=== PATIENT | male | born 1965 | race Caucasian/White ===

== ENCOUNTER 2021-05-16 15:39 | Outpatient (CLI) | payer MEDICAID ==
--- NOTE | 2021-05-24 08:45 | XRAY Report ---
PROCEDURE: Shoulder 3 View LT INDICATIONS: SHOULDER PAIN TECHNIQUE: 3 views of the shoulder were acquired. COMPARISON: None. FINDINGS: Bones: No fractures or dislocations. Mild to moderate acromioclavicular joint and glenohumeral join t osteoarthritic changes are seen. No suspicious bony lesions. Visualized ribs appear intact. Soft tissues: No suspicious soft tissue calcifications. IMPRESSION: Mild to moderate left shoulder joint osteoarthritis. No fracture or dislocation. No susp icious bony lesion. Reviewed by: El Shelley MD on 05/16/2021 4:24 PM PDT Approved by: El Shelley MD on 05/16/2021 4:24 PM PDT Station ID: [id number]
== END 2021-05-16 15:40 | disposition home or self-care (01) ==
LOC: DI 15:39
PROVIDERS: ATTEND Family Medicine
DX: M19.012 Primary osteoarthritis, left shoulder (principal)

== ENCOUNTER 2022-03-10 09:20 | Outpatient (CLI) | payer MEDICAID ==
--- NOTE | 2022-03-10 10:06 | XRAY Report ---
PROCEDURE: Knee 2 View RT INDICATIONS: R KNEE PX TECHNIQUE: 2 views of the right knee(s) were acquired. COMPARISON: None. FINDINGS: Bones: No fractures or dislocations. No suspicious bony lesions. Soft tissues: No joint effusion. No suspicious soft tissue calcifications. IMPRESSION: No acute fracture. No osseous lesion. If symptoms and/or clinical suspicion for patholog y continue, further assessment with repeat plain films, or advanced imaging (e.g., CT, MRI, or bone s can) is recommended for further assessment. Reviewed by: Óscar Beach MD on 03/10/2022 10:04 AM PDT Approved by: Óscar Beach MD on 03/10/2022 10:04 AM PDT Station ID: [id number]
== END 2022-03-10 09:21 | disposition home or self-care (01) ==
LOC: DI 09:20
PROVIDERS: ATTEND Family Medicine
DX: M25.561 Pain in right knee (principal)

== ENCOUNTER 2022-05-11 14:21 | Outpatient (CLI) | payer MEDICAID ==
--- NOTE | 2022-05-11 16:58 | MRI Report ---
PROCEDURE: Knee RT W/O INDICATIONS: RIGHT KNEE PAIN TECHNIQUE: Noncontrast sagittal PD fast spin echo and T2 fast spin echo with fat saturation, sagittal 3-D gradie nt sequence with fat saturation; coronal T1 spin echo and PD fast spin echo with fat saturation, and axial PD fast spin echo with fat saturation through the knee. COMPARISON: None. FINDINGS: Image quality: Excellent. Menisci: Degenerative signal suspected in the body and posterior horn of the lateral meniscus, versus a tiny horizontal tear. The meniscal popliteal fascicles are intact. Complex tear of the medial meni scus, primarily in a horizontal orientation in the posterior horn. There is a focal radial tear (5/22 ). The meniscus is slightly extruded. Cruciate ligaments: The anterior and posterior cruciate ligaments appear intact. Medial structures: There is edema and thickening of the MCL. The semimembranosus and anserine tendons are intact. Lateral structures: The biceps femoris tendon, LCL, and iliotibial band are intact. The popliteus ten don is intact. Anterior structures: Extensor mechanism is intact. Trace fluid in Hoffa's fat pad. There is prepatell ar soft tissue swelling. The medial retinaculum is intact. Bones and cartilage: Mild tricompartmental chondromalacia without a large full-thickness defect. Ther e might be a tiny focal fissure in the medial femoral condyle with underlying marrow edema. Joint space: Mild to moderate joint effusion and synovitis. No significant Carpio's cyst. IMPRESSION: Complex tear of the medial meniscus, primarily involving the posterior horn in a horizon ofelia orientation. There is a focal radial tear as well (5/22). Slightly extruded meniscus. Sprain and likely prior injury of the MCL. Mild to moderate joint effusion and synovitis. Trace fluid in Hoffa's fat pad. Prepatellar bursitis. Overall mild arthrosis, questionable tiny fissure of the medial femoral condyle cartilage with marrow edema. Reviewed by: Sergio Dumas MD on 05/11/2022 4:57 PM PDT Approved by: Sergio Dumas MD on 05/11/2022 4:57 PM PDT Station ID: [id number]
== END 2022-05-11 14:22 | disposition home or self-care (01) ==
LOC: DI 14:21
PROVIDERS: ATTEND Family Medicine
DX: S83.231A Complex tear of medial meniscus, current injury, right knee, initial encounter (principal); S83.411A Sprain of medial collateral ligament of right knee, initial encounter; M25.461 Effusion, right knee; M70.41 Prepatellar bursitis, right knee; M17.11 Unilateral primary osteoarthritis, right knee

== ENCOUNTER 2022-06-08 08:00 | Outpatient (CLI) | payer MEDICAID ==
--- NOTE | 2022-06-08 15:11 | XRAY Report ---
PROCEDURE: Knee 4 View RT INDICATIONS: RIGHT KNEE PAIN TECHNIQUE: 4 views of the right knee(s) were acquired. COMPARISON: Right knee radiographs 03/10/2022. FINDINGS: Bones: No fractures or dislocations. No suspicious bony lesions. Mild medial compartment narrowing . Minimal patellofemoral compartment spurring. Mild medial compartment narrowing of the left knee als o demonstrated on the frontal view including both knees. Soft tissues: Trace joint effusion. No suspicious soft tissue calcifications. IMPRESSION: 1. No acute fracture visualized. 2. Mild degenerative changes of both knees. 3. Trace right knee effusion. Reviewed by: Jose Maria Larsen MD on 06/08/2022 3:10 PM PDT Approved by: Jose Maria Larsen MD on 06/08/2022 3:10 PM PDT Station ID: [id number]
== END 2022-06-08 23:59 | disposition home or self-care (01) ==
LOC: DI.WOS 08:00
PROVIDERS: ATTEND Orthopaedic Surgery
DX: M17.0 Bilateral primary osteoarthritis of knee (principal); M25.461 Effusion, right knee

== ENCOUNTER 2023-07-23 07:10 | Day surgery (SDC) | payer MEDICAID ==
[2023-07-23] MEDS ORDERED: LACTATED RINGERS 1,000 ML IV ONE ×2 (07:41→09:44)
--- NOTE | 2023-07-23 08:36 | ANESTHESIA ---
Pre-Anesthesia VS, & Labs - Diagnosis screening - Procedure colonoscopy Vital Signs: Temp Pulse Resp BP Pulse Ox O2 Flow Rate 36.1 C L 70 14 138/72 H 98 0 07/23/23 07:42 07/23/23 07:42 07/23/23 07:42 07/23/23 07:42 07/23/23 07:42 07/23/23 07:42 Height: 5 ft 7 in Weight (kg): 97.52 kg Body Mass Index: 33.6 BMI Classification: Obese - NPO >8 hours Home Medications and Allergies Home Medications: Ambulatory Orders Levothyroxine Sodium 50 mcg ORAL DAILY 07/20/23 Rosuvastatin Calcium [Crestor] 20 mg ORAL HS 07/20/23 allopurinoL [Allopurinol] 300 mg ORAL DAILY 07/20/23 amLODIPine [Norvasc] 5 mg ORAL DAILY 07/20/23 Levothyroxine Sodium 50 mcg ORAL DAILY 07/20/23 Rosuvastatin Calcium [Crestor] 20 mg ORAL HS 07/20/23 allopurinoL [Allopurinol] 300 mg ORAL DAILY 07/20/23 amLODIPine [Norvasc] 5 mg ORAL DAILY 07/20/23 Allergies/Adverse Reactions: Allergies Allergy/AdvReac Type Severity Reaction Status Date / Time Penicillins Allergy Intermediate Rash Verified 07/23/23 07:47 Anes History & Medical History - Anesthetic History Anesthesia Complications: reports: No previous complications Family history of Anesthesia Complications: Denies Family history of Malignant Hyperthermia: Denies - Medical History Cardiovascular: reports: Hypertension, High cholesterol, Coronary artery disease Pulmonary: reports: Other Gastrointestinal: reports: Colon polyps Urinary: reports: None Musculoskeletal: reports: Gout Endocrine/Autoimmune: reports: HyPOthyroidism Skin: reports: None - Surgical History General: reports: Cholecystectomy Eyes Ears Nose Throat (EENT): reports: Tonsil/Adenoidectomy Exam General: Alert, Oriented x3, Cooperative Dental: WNL Mouth Openin Fingerbreadth Neck Mobility: Normal Mallampati classification: I Thyromental Distance: 4-6 cm Respiratory: Lungs clear Cardiovascular: Regular rate Plan Anesthesia Type: General, Total IV Consent for Procedure(s) Verified and Reviewed: Yes Code Status: Attempt Resuscitation ASA classification: 2-Mild systemic disease Is this case an emergency?: No
--- NOTE | 2023-07-23 08:56 | HISTORY & PHYSICAL EXAMINATION ---
Chief Complaint - Chief Complaint Chief Complaint: history colon polyps History of Present Illness - History Obtained From Records Reviewed: yes History obtained from: pt Exam Limitations: none - History of Present Illness HPI Comment/Other: colonoscopy 10 years ago. he believes a couple polyps removed. no gi problems. history bloody bms after having a glass of wine for years. he no longer drinks wine or alcohol and no longer has diarrhea with blood. History - Past Medical History Cardiovascular: reports: Hypertension, High cholesterol, Coronary artery disease Respiratory: reports: Other Endocrine/Autoimmune: reports: HyPOthyroidism GI: reports: Colon polyps : reports: None HEENT: reports: None Psych: reports: None Musculoskeletal: reports: Gout Derm: reports: None MRSA Hx?: No - Past Surgical History General: reports: Cholecystectomy HEENT: reports: Tonsil/Adenoidectomy Meds/Allgy - Home Medications Home Medications: Ambulatory Orders Medication Instructions Recorded Confirmed Levothyroxine Sodium 50 mcg ORAL DAILY 07/20/23 07/20/23 Rosuvastatin Calcium [Crestor] 20 mg ORAL HS 07/20/23 07/20/23 allopurinoL [Allopurinol] 300 mg ORAL DAILY 07/20/23 07/20/23 amLODIPine [Norvasc] 5 mg ORAL DAILY 07/20/23 07/20/23 - Allergies Allergies/Adverse Reactions: Allergies Allergy/AdvReac Type Severity Reaction Status Date / Time Penicillins Allergy Intermediate Rash Verified 07/23/23 07:47 Review of Systems - Other Findings Other Findings: 10 pt ros as above otherwise unremarkable Exam - Vital Signs Vital Signs: Vital Signs x48h Temp Pulse Resp BP Pulse Ox O2 Flow Rate 07/23/23 07:42 36.1 C L 70 14 138/72 H 98 0 - Physical Exam General Appearance: positive: No acute distress, Alert Eyes Bilateral: positive: PERRL ENT: positive: No signs of dehydration Neck: positive: No JVD, Trachea midline Respiratory: positive: No respiratory distress Cardiovascular: positive: Regular rate & rhythm Abdomen: positive: Non-tender, No distention Neurologic/Psychiatric: positive: Oriented x3 Conclusion/Plan - Problem List (1) Colon cancer screening Conclusion/Plan: plan colonoscopy. parq held and consent obtained
[2023-07-23] MEDS ORDERED: PROPOFOL 500 MG/50 ML 500 MG/50 ML VIAL ONE (09:18)
[2023-07-23] MEDS ORDERED: SIMETHICONE 40 MG/0.6 ML 15 ML BOTTLE PO ONE (09:20)
[2023-07-23] MEDS ORDERED: PROPOFOL 200 MG/20 ML VIAL IVP ONE (09:44)
[2023-07-23 10:18] VITALS: BP 109/73; O2SAT 98
--- NOTE | 2023-07-23 15:50 | ANESTHESIA POST OP EVALUATION ---
Anesthesia Post Eval - Post Anesthesia Eval Vitals: Last Vital Signs Temp 36.2 C L 07/23/23 10:05 Pulse 67 07/23/23 10:15 Resp 16 07/23/23 10:15 BP 109/73 07/23/23 10:15 Pulse Ox 98 07/23/23 10:15 O2 Flow Rate 0 07/23/23 07:42 CV Function Including HR & BP: Stable Pain Control: Satisfactory Nausea & Vomiting: Negative Mental Status: Baseline Respiratory Status: Airway Patent Hydration Status: Satisfactory Anesthesia Complications: None
== END 2023-07-23 07:11 | disposition home or self-care (01) ==
LOC: SDS 07:10
PROVIDERS: ATTEND Surgery
PROC: 0DBM8ZZ Excision of Descending Colon, Via Natural or Artificial Opening Endoscopic (ICD-10-PCS; principal; 2023-07-23 08:45)
DX: Z12.11 Encounter for screening for malignant neoplasm of colon (principal); D12.4 Benign neoplasm of descending colon; E66.9 Obesity, unspecified; Z68.33 Body mass index [BMI] 33.0-33.9, adult
CPT/HCPCS: 45380; A9270; J7120

== ENCOUNTER 2023-11-13 10:42 | Outpatient (CLI) | payer MEDICAID ==
[2023-11-13 11:41] LABS: CHOL/HDL RATIO 2.9 (<5.0); CHOLESTEROL 147 mg/dL; HDL CHOLESTEROL 51 mg/dL; LDL CHOLESTEROL,CALCULATED 71 mg/dL; LDL/HDL RATIO 1.4 (<3.6); TRIGLYCERIDES 125 mg/dL (48-352); VLDL CHOLESTEROL 25 mg/dL
[2023-11-13 12:10] LABS: ALBUMIN 4.8 g/dL (3.2-5.5); ALBUMIN/GLOBULIN RATIO 1.8 (1.0-2.2); ALKALINE PHOSPHATASE 79 IU/L (42-121); ALT ALANINE AMINOTRANSFERASE 26 IU/L (10-60); AST ASPARTATE AMINOTRANSFERASE 19 IU/L (10-42); BILIRUBIN,TOTAL 0.4 mg/dL (0.2-1.0); BUN - BLOOD UREA NITROGEN 18 mg/dL (6-20); CALCIUM 9.9 mg/dL (8.5-10.3); CARBON DIOXIDE - CO2 27 mmol/L (21-32); CHLORIDE 109 mmol/L (101-111); CREATININE 0.8 mg/dL (0.6-1.3); GFR - MDRD 100 (>89); GLUCOSE 106 mg/dL (74-104); POTASSIUM 4.6 mmol/L (3.5-4.5); SODIUM 143 mmol/L (135-145); TOTAL PROTEIN 7.4 g/dL (6.4-8.9)
== END 2023-11-13 10:43 | disposition home or self-care (01) ==
LOC: LAB 10:42
PROVIDERS: ATTEND Family Medicine
DX: D72.829 Elevated white blood cell count, unspecified (principal); E03.9 Hypothyroidism, unspecified; R73.01 Impaired fasting glucose; I10 Essential (primary) hypertension; Z79.899 Other long term (current) drug therapy; I25.10 Atherosclerotic heart disease of native coronary artery without angina pectoris
CPT/HCPCS: 36415; 80053; 80061; 83721; 84153